=== PATIENT | female | born 1985 | race Hispanic/Latino ===

== ENCOUNTER 2018-04-21 22:06 | Emergency (ER) | payer SELFPAY ==
[~2018-04-21] VITALS: Ht 152.4 cm; Wt 66.7 kg
== END 2018-04-21 23:32 | disposition home or self-care (01) ==
LOC: ER 22:06
DX: F41.9 Anxiety disorder, unspecified (principal); E07.9 Disorder of thyroid, unspecified
CPT/HCPCS: 99283